=== PATIENT | male | born 1950 | race Caucasian/White ===

== ENCOUNTER 2020-09-28 18:14 | Emergency (ER) | payer MEDICAID ==
[~2020-09-28] VITALS: Ht 162.6 cm; Wt 73.0 kg
[~2020-09-28 18:14] MED LIST: ALBU05 NEB; ASPI-1497 MT; ATOR20TA65 PO; ATROV INH; FINA5TAB3 MT; FLUO20CA39 PO; GABA-532 MT; LEVO500T2 MT; METR500T MT; NALT50TA5 MT; SEREDK INH; VARE1TAB22 MT
[2020-09-28] MEDS ORDERED: LORAZEPAM 0.5MG TABLET PO ONE (19:00)
[2020-09-28 19:31] LABS: MEAN CORPUSCULAR HEMOGLOBIN 30.2 pg (28.0-32.0); MEAN CORPUSCULAR VOLUME 86.4 fL (80.0-94.0); MEAN PLATELET VOLUME 6.3 fl (7.4-10.4); PLATELET 227 x1000/uL (130-400); RED BLOOD CELL COUNT 2.66 mill/uL (4.7-6.1); RED CELL DISTRIBUTION WIDTH 16.4 % (11.6-14.6)
[2020-09-28 19:36] LABS: CHLORIDE 97 mEq/L (98-107)
[2020-09-28 20:00] VITALS: BP 122/65
[2020-09-28 21:03] LABS: PLATELET ESTIMATE NORMAL
== END 2020-09-28 21:01 | disposition home or self-care (01) ==
LOC: ER 18:14
DX: F41.9 Anxiety disorder, unspecified (principal); D64.9 Anemia, unspecified; R79.89 Other specified abnormal findings of blood chemistry; J44.9 Chronic obstructive pulmonary disease, unspecified; F17.290 Nicotine dependence, other tobacco product, uncomplicated; Z79.82 Long term (current) use of aspirin; Z79.899 Other long term (current) drug therapy
CPT/HCPCS: 36415; 71045; 80053; 83880; 84484; 85025; 93005; 99285